=== PATIENT | male | born 1960 | race Caucasian/White ===

== ENCOUNTER → 2017-04-25 | Outpatient (CLI) | payer OTHER ==
[~2017-04-25] MED LIST: ASPI-715 PO; CIP500 PO; DOC100 PO; FAM20 PO; FLUT16SP19; IBU800 PO; LOR5/325 PO
== END ==
LOC: LAB 11:48
PROVIDERS: ATTEND Otolaryngology
DX: R43.0 Anosmia (principal)
CPT/HCPCS: 36415; 82565

== ENCOUNTER → 2017-05-18 | Outpatient (CLI) | payer OTHER ==
[~2017-05-18] MED LIST changes: +IOPAMIDOL 76% 75 ML INFUS BTL 75 ML ONE
--- NOTE | 2017-05-18 11:12 | RADIOLOGY IMAGING REPORT ---
FACILITY: [facility] PATIENT NAME: Mt Davis : 1960 MR: [id number] V: [id number] EXAM DATE: ORDERING PHYSICIAN: FATOUMATA KING TECHNOLOGIST: Location: [facility] - [place] Patient: Mt Davis : 1960 Visit/Account:[id number] Date of Sevice: 05/18/2017 SINUSES W CONTRAST COMPARISONS: None ADDITIONAL PERTINENT HISTORY: Anosmia TECHNIQUE: Multiple axial images were obtained through the paranasal sinuses with coronal and sagitta l reformatted images. IV contrast was administered. One of the following dose optimization techniqu es was utilized in the performance of this exam: Automated exposure control; adjustment of the mA and /or kV according to the patient's size; or use of an iterative reconstruction technique. Specific d etails can be referenced in the facility's radiology CT exam operational policy. Contrast: 75 mL of Isovue-300 FINDINGS: Maxillary sinuses: Negative. Frontal sinuses: Negative. Ethmoid air cells: Negative. Sphenoid sinuses:Negative. Nasal septum: Moderate nasal septal deviation to the left measuring approximately 4 to 5 mm.. Drainage pathways: Patent Paranasal variance: Small bilateral Dean cells without inflammatory change. Medial orbital betancur, cribriform plate, and orbital floors: Negative. Visualized bony skull base Negative. Visualized intracranial contents: Negative. Orbits and surrounding soft tissues: Negative. Pathologic enhancement: None IMPRESSION: 1. No significant paranasal sinus disease. 2. Moderate nasal septal deviation to the left. Report Dictated By: Vin Maddox MD at 05/18/2017 11:02 AM Report E-Signed By: Vin Maddox MD at 05/18/2017 11:07 AM WSN:[id number]
== END ==
LOC: CT 02:12
PROVIDERS: ATTEND Otolaryngology
DX: J34.2 Deviated nasal septum (principal)
CPT/HCPCS: 70487; Q9967

== ENCOUNTER → 2018-03-12 | Outpatient (CLI) | payer OTHER ==
[~2018-03-12] MED LIST changes: -IOPAMIDOL 76% 75 ML INFUS BTL 75 ML ONE
[2018-03-12 13:30] LABS: PLATELET COUNT, AUTOMATED 189 K/uL (150-450)
--- NOTE | 2018-03-12 13:46 | EKG ---
FACILITY: [facility] PATIENT NAME: JOZEF NAYAK : [id number] MR: [id number] V: [id number] EXAM DATE: ORDERING PHYSICIAN: MAIKEL RENNER TECHNOLOGIST: SUZIE Test Reason : PRE OP Blood Pressure : / mmHG Vent. Rate : 110 BPM Atrial Rate : 110 BPM P-R Int : 146 ms QRS Dur : 106 ms QT Int : 336 ms P-R-T Axes : 072 054 053 degrees QTc Int : 454 ms Sinus tachycardia Otherwise normal ECG When compared with ECG of 01-MAY-2014 11:48, Vent. rate has increased BY 37 BPM Confirmed by MAIKEL MEDINA ([id number]) on 03/12/2018 7:01:52 PM Referred By: ZURDO Confirmed By:MAIKEL MEDINA
== END ==
LOC: LAB 13:17
PROVIDERS: ATTEND Anesthesiology
DX: Z01.812 Encounter for preprocedural laboratory examination (principal); Z01.810 Encounter for preprocedural cardiovascular examination; M75.102 Unspecified rotator cuff tear or rupture of left shoulder, not specified as traumatic; R00.0 Tachycardia, unspecified
CPT/HCPCS: 36415; 85025; 93005